=== PATIENT | male | born 1955 | race Caucasian/White ===

== ENCOUNTER 2017-08-29 15:54 | Outpatient (CLI) | payer BC ==
[2017-08-29 16:50] LABS: Hemoglobin 15.4 g/dL (14.0-18.0); Mean Corpuscular HGB CONC 32.5 g/dL (32.0-36.0); Mean Corpuscular Hemoglobin 29.8 pg (27.0-31.0); Mean Corpuscular Volume 91.9 fl (80.0-94.0); Mean Platelet Volume 7.5 fL (7.4-10.4); Platelet Count 239 thou/uL (130-400); Red Blood Cell (RBC) Count 5.16 mill/uL (4.70-6.10); White Blood Cell (WBC) Count 8.3 thou/uL (4.8-10.8)
[2017-08-29 16:55] LABS: PTT 29.9 SEC (22.9-36.1)
[2017-08-29 17:00] LABS: INR-International Normal Ratio 1.2; Prothrombin Time 15.2 SEC (12.0-14.7)
[2017-08-29 17:14] LABS: Anion Gap 9 mmol/L (10-20); BUN (Urea Nitrogen) 23 mg/dL (8.4-25.7); Calc. Creatinine Clearance 0 mL/min (70-130); Calcium 9.3 mg/dL (7.8-10.44); Carbon Dioxide 29 mmol/L (23-31); Chloride 104 mmol/L (98-107); Estimated GFR-MDRD 88; Glucose 85 mg/dL (80-115); Potassium 4.1 mmol/L (3.5-5.1); Sodium 138 mmol/L (136-145)
== END 2017-08-29 15:55 | disposition home or self-care (01) ==
LOC: LABBT 15:54
PROVIDERS: ATTEND Internal Medicine Cardiovascular Disease
DX: Z01.818 Encounter for other preprocedural examination (principal); R06.00 Dyspnea, unspecified; R94.39 Abnormal result of other cardiovascular function study
CPT/HCPCS: 80048; 85027; 85610; 85730

== ENCOUNTER 2017-09-04 06:03 | Day surgery (SDC) | payer BC ==
[2017-08-29 16:08] VITALS: BMI 28.8
[2017-09-04] MEDS ORDERED: Diazepam 5 MG TAB ONE (06:13)
[2017-09-04] MEDS ORDERED: Lidocaine 1% (PF) 30 ML VIAL ONE (06:33)
[2017-09-04] MEDS ORDERED: Diazepam 5 MG TAB PO SCH (06:45)
[2017-09-04] MEDS ORDERED: Sodium Chloride 0.9% 1,000 ML IV SCH (06:45)
[2017-09-04] MEDS ORDERED: Midazolam HCl 2 mg/2 ml Vial ONE (07:39)
[2017-09-04] MEDS ORDERED: Fentanyl 100 MCG/2 ML VIAL ONE (07:39)
[2017-09-04] MEDS ORDERED: Metoprolol Tartrate 5 MG/5 ML VIAL ONE (07:53)
[2017-09-04] MEDS ORDERED: Iopamidol 370 76% 100 ML VIAL ONE (08:49)
--- NOTE | 2017-09-04 21:58 | DIS ---
HOSPITAL COURSE: Mr. Dennison underwent cardiac catheterization today. He has no flow limiting disea se. There is a minimal luminal irregularity of the proximal LAD. There is no stenosis. The ejection fraction was normal and the left ventricular pressures were normal. CONCLUSION: 1. Noncardiac chest pain. 2. Occasional palpitations of unknown etiology, intermittent, infrequent. PLAN: 1. I recommend he have his cholesterol checked and try to keep the LDL cholesterol at least below 10 0. 2. He is uncertain about whether he wishes to pursue diaphragm reduction surgery. I have recommende d that he see Dr. Ruy Mendoza if he wishes to have a second opinion about this. 3. If he has recurrent palpitations, I recommend he get a pulse oximeter to check his heart rate. I f it is frequent, to call us back, we will place a monitor on him.
== END 2017-09-04 14:03 | disposition home or self-care (01) ==
LOC: CCL 06:03
PROVIDERS: ATTEND Internal Medicine Cardiovascular Disease
PROC: 4A023N7 Measurement of Cardiac Sampling and Pressure, Left Heart, Percutaneous Approach (ICD-10-PCS; principal; 2017-09-04)
PROC: B2151ZZ Fluoroscopy of Left Heart using Low Osmolar Contrast (ICD-10-PCS; principal; 2017-09-04)
DX: R07.89 Other chest pain (principal); R00.2 Palpitations; J45.909 Unspecified asthma, uncomplicated; R53.82 Chronic fatigue, unspecified; I10 Essential (primary) hypertension; I20.9 Angina pectoris, unspecified; Z79.51 Long term (current) use of inhaled steroids; Z79.82 Long term (current) use of aspirin; Z79.899 Other long term (current) drug therapy; Z87.891 Personal history of nicotine dependence
CPT/HCPCS: 76942; 93458; 93798; 99152; 99153; C1769; J1644; J2001; J2250; J3010